=== PATIENT | male | born 1995 | race Caucasian/White ===

== ENCOUNTER 2021-06-22 21:31 | Emergency (ER) | payer SELFPAY ==
[~2021-06-22] VITALS: Ht 177.8 cm; Wt 83.9 kg
[2021-06-22 21:34] VITALS: BP_SYST 130
[2021-06-22 22:17] VITALS: BP_SYST 130
== END 2021-06-22 22:17 ==
LOC: SED 21:31
DX: Z02.89 Encounter for other administrative examinations (principal)
CPT/HCPCS: 99283